=== PATIENT | male | born 1990 | race Caucasian/White ===

== ENCOUNTER 2021-08-14 14:10 | Emergency (ER) | payer BC, SELFPAY ==
[2021-08-14] VITALS (7 sets, daily range): BP systolic 129–166; BP diastolic 83–107; PULSE 87–124; RESP 18; TEMP 36.5; O2SAT 95–98; BMI 27.1
--- NOTE | 2021-08-14 16:25 | ED.ANXIETY ---
HPI - Anxiety General Time Seen by Provider: 16:25 Date Seen: 08/14/21 Chief Complaint: Anxiety Stated Complaint: ANXIETY Time Seen by Provider: 08/14/21 15:40 Source: patient Mode of arrival: ambulatory Limitations: no limitations History of Present Illness HPI narrative: This 31-year-old male comes in reporting symptoms of anxiety for the past several days. He states that he has a history of mild generalized anxiety that he has been able to manage without using any medicines. This is been the case for many years. He states that he has become more anxious with increased heart rate and blood pressure over the past several days. He states that he was at a constitution party this last weekend where he had excessive amounts of alcohol. He does not normally do this but states that he does take marijuana occasionally. He states that he has some difficulty getting to sleep. He denies having any depression or suicidality. He does not have any auditory or visual hallucinations. He does report a hoarse voice but denies having fever, cough, or nasal congestion. He thinks that his thin voice is related to anxiety. He does state that he feels that his mouth is dry and could use some fluids. Related Data Previous Rx's Medication Instructions Recorded escitalopram oxalate 10 mg tablet 10 mg PO DAILY #30 tab 08/14/21 (Lexapro) lorazepam 0.5 mg tablet (Ativan) 0.5 mg PO TID PRN #10 tab 08/14/21 ondansetron HCl 4 mg tablet 4 mg PO Q6H #20 tab 08/14/21 Allergies Allergy/AdvReac Type Severity Reaction Status Date / Time neomycin Allergy Mild Verified 08/14/21 14:37 bactrim Allergy Mild Uncoded 08/14/21 14:37 Review of Systems Narrative: Constitutional: No fevers, no weight gain or loss. Eyes: No discharge. No vision changes. HENT: No congestion, no sore throat, no ear pain. Hoarse voice. Cardiovascular: No chest pain, no palpitations. Respiratory: No shortness of breath, no wheezes, no cough. Gastrointestinal: No abdominal pain, no vomiting, no diarrhea. Genitourinary: No dysuria, no hematuria. Musculoskeletal: Normal range of motion. Skin: No rashes, no pruritis. Neurological: No dizziness, weakness, sensory change, speech change. Endo/Heme/Allergies: No bruising or bleeding. No polydipsia. Pysch: no suicidality. Anxiety and insomnia as stated above. All other systems reviewed and are negative. [facility] Social History Smoking Status: Current every day smoker What tobacco products do you use: cigarettes Do you use any of these nicotine containing products: None Second hand tobacco smoke exposure: Yes How often do you have a drink containing alcohol: monthly or less How often do you have six or more drinks on one occasion: Less than monthly AUDIT-C Alcohol total score: 2 Non-prescribed substance use: marijuana (any form) Exam Narrative: Exam Narrative: Constitutional: Well-developed, well-nourished, no acute distress. HEENT: Normocephalic, atraumatic. Neck: Normal range of motion. Nontender. Supple. Heart: Regular. No murmurs. Normal rate. Intact distal pulses. Lungs: Clear to auscultation. No chest discomfort. No wheezes, rhonchi, or rales. Abdomen: Normal bowel sounds. Nontender. No rebound tenderness. Genitalia: Deferred. Back: No midline tenderness. Normal range of motion. Extremities: Normal range of motion. No injury. Skin: Intact. No rash. Warm. No erythema or pallor. Neurologic: No altered sensation. No weakness. Alert and oriented. Psychiatric: No suicidality. No depression. Nursing notes and vitals signs are reviewed. Const: Vital Signs, click to edit/add: Vital Signs - 24 hr 08/14/21 14:38 08/14/21 16:12 08/14/21 16:30 Temperature 97.7 F Pulse Rate [Right Pulse Oximeter] 124 H 94 93 Respiratory Rate 18 Blood Pressure [Ri ght Upper Arm] 134/91 H 166/107 H 152/94 H Pulse Oximetry 98 97 95 08/14/21 17:05 08/14/21 17:30 Temperature Pulse Rate [Right Pulse Oximeter] 106 H Respiratory Rate Blood Pressure [Ri ght Upper Arm] 143/101 H 140/84 H Pulse Oximetry 97 Psych: Common normals: mental status grossly normal Attitude: calm and engaged Activity/motor behavior: appropriate eye contact Course Vital Signs Vital signs: Initial Vital Signs Temperature 97.7 F 08/14/21 14:38 Temperature Source Temporal Artery Scan 08/14/21 14:38 Pulse Rate 124 H 08/14/21 14:38 Respiratory Rate 18 08/14/21 14:38 Blood Pressure 134/91 H 08/14/21 14:38 Blood Pressure Mean 105 08/14/21 14:38 Blood Pressure Position Sitting 08/14/21 14:38 Pulse Oximetry 98 08/14/21 14:38 Oxygen Delivery Method 08/14/21 14:38 Vital Signs Temperature 97.7 F 08/14/21 14:38 Pulse Rate 124 H 08/14/21 14:38 Respiratory Rate 18 08/14/21 14:38 Blood Pressure 134/91 H 08/14/21 14:38 Pulse Oximetry 98 08/14/21 14:38 Temperature 97.7 F 08/14/21 14:38 Pulse Rate 106 H 08/14/21 17:30 Respiratory Rate 18 08/14/21 14:38 Blood Pressure 140/84 H 08/14/21 17:30 Pulse Oximetry 97 08/14/21 17:30 MDM - Anxiety MDM Narrative Medical decision making narrative: This patient comes in reporting symptoms of anxiety and also has laryngitis. An IV was established where the patient received a L of normal saline, 4 mg of Zofran, and 0.5 mg of Ativan. Later he received another dose of Ativan 0.5 mg. These brought sufficient relief to his symptoms. Lab results returned with reassuring findings. The patient has laryngitis is possibly due to a virus or perhaps some other inflammatory cause. He is not showing signs of infection. His primary concern is his symptoms of anxiety. I did recommend starting an anti anxiety medicine and he agreed to try a prescription for Lexapro. He also received 10 tablets of Ativan to give more immediate relief if needed. I advised him to follow up with the primary physician in 2-3 weeks for re-evaluation. Differential Diagnosis Differential diagnosis: Likely panic disorder and acute anxiety Lab Data Attestation: I reviewed the patient's lab results. Labs: Lab Results 08/14/21 08/14/21 Range/Units 16:50 16:50 WBC 11.83 H (4.50-11.00) K/uL RBC 5.54 (4.30-5.90) m/uL Hgb 15.9 (13.5-17.5) gm/dL Hct 45.9 (37.0-53.0) % MCV 83 (80-100) fL MCH 29 (26-34) pg MCHC 35 (32-36) gm/dL RDW Coeff of Hipolito 13.5 (11.5-15.5) % Plt Count 274 (140-440) K/uL Neut % (Auto) 82.3 H (42.0-72.0) % Lymph % (Auto) 10.7 L (20-44) % [place] % (Auto) 6.6 (0.0-11.0) % Eos % (Auto) 0.0 (0.0-7.0) % Baso % (Auto) 0.3 (0.0-3.0) % Neut # (Auto) 9.70 H (1.7-7.0) K/uL Lymph # (Auto) 1.30 (0.90-2.90) K/uL [place] # (Auto) 0.80 (0.00-0.90) K/UL Eos # (Auto) 0.00 (0.00-0.50) K/uL Baso # (Auto) 0.00 (0.00-0.30) K/uL Abs Immat Gran (auto) 0.01 (0.00-0.30) K/uL Sodium 135 (135-149) mmol/L Potassium 4.3 (3.6-5.1) mmol/L Chloride 96 (96-114) mmol/L Carbon Dioxide 18 L (20-32) mmol/L BUN 15 (5-24) mg/dL Creatinine 0.9 (0.5-1.5) mg/dL Estimated Creat Clear 131.73 Glucose 92 (60-115) mg/dL Calcium 9.7 (8.4-10.6) mg/dL Discharge Plan Discharge Clinical Impression: Acute anxiety Condition: Improved Instructions: Anxiety (ED) Activity Level: Activity as Tolerated Prescriptions: New lorazepam [Ativan] 0.5 mg tablet 0.5 mg PO TID PRNQty: 10 0RF ondansetron HCl 4 mg tablet 4 mg PO Q6H Qty: 20 0RF escitalopram oxalate [Lexapro] 10 mg tablet 10 mg PO DAILY Qty: 30 2RF Follow Up/Referrals: Sammy Bender MD [Primary Care Provider] - Stand Alone [facility] Info Inst[facility]
[2021-08-14] MEDS: 0.9 % SODIUM CHLORIDE 1000 ml 1,000 ML IV (16:56)
[2021-08-14] MEDS: LORazepam 2 MG/ML inj 0.5 MG IV ×2 (16:58→17:54)
[2021-08-14 17:00] LABS: Basophils Percent Auto 0.3 % (0.0-3.0); Hematocrit 45.9 % (37.0-53.0); Hemoglobin* 15.9 gm/dL (13.5-17.5); Immature Granulocytes Abs Auto 0.01 K/uL (0.00-0.30); Lymphocytes Percent Auto 10.7 % (20-44); Mean Corpuscular HGB Conc 35 gm/dL (32-36); Mean Corpuscular Hemoglobin 29 pg (26-34); Mean Corpuscular Volume 83 fL (80-100); Monocytes Percent Auto 6.6 % (0.0-11.0); Neutrophils Percent Auto 82.3 % (42.0-72.0); Platelet Count* 274 K/uL (140-440); RDW Coefficient of Variation % 13.5 % (11.5-15.5); Red Blood Count 5.54 m/uL (4.30-5.90); White Blood Count* 11.83 K/uL (4.50-11.00)
[2021-08-14 17:19] LABS: Chloride* 96 mmol/L (96-114); Potassium* 4.3 mmol/L (3.6-5.1); Sodium* 135 mmol/L (135-149)
[2021-08-14 17:22] LABS: Blood Urea Nitrogen* 15 mg/dL (5-24); Carbon Dioxide* 18 mmol/L (20-32); Creatinine* 0.9 mg/dL (0.5-1.5); Est. Creatinine Clearance* 131.73; Estimated Glomerular Filt Rate 117.83; Glucose* 92 mg/dL (60-115)
[2021-08-14 17:23] LABS: Calcium* 9.7 mg/dL (8.4-10.6)
[2021-08-14 17:28] LABS: Slide Review Reflex No
[2021-08-14] MEDS: ONDANSETRON 2 MG/ML inj 4 MG IVP (17:53)
== END 2021-08-14 19:06 ==
PROVIDERS: Emergency Provider Emergency Medicine Emergency Medical Services; PCP Family Medicine
DX: F41.9 Anxiety disorder, unspecified (principal); J04.0 Acute laryngitis
CPT/HCPCS: 36415; 80048; 85025; 96374; 96375; 96376; 99284; J2060; J2405; J7030

== ENCOUNTER 2022-04-12 19:02 | Emergency (ER) | payer BC, SELFPAY ==
[2022-04-12 19:07] VITALS: BP 158/103; PULSE 104; RESP 18; TEMP 36.8; O2SAT 97
--- NOTE | 2022-04-12 19:16 | ED_ITS ---
HPI - General Adult General Time Seen by Provider: 19:16 Date Seen: 04/12/22 Chief complaint: Headache/Migraine Stated complaint: bad headache Time Seen by Provider: 04/12/22 19:15 Source: patient and RN notes reviewed Mode of arrival: ambulatory Limitations: no limitations History of Present Illness HPI narrative: Patient is a 32-year-old male coming in accompanied with his significant other with complaint of severe headache. He has had it for 3 days. He has been trying ibuprofen without any relief. He does have some audible nasal congestion and when I question him on that, he states he is still quite congested. He had a recent cold but overall thought it was just a mild cold. He does continue with some nasal congestion. He has no visual changes with this no sore throat no significant rhinorrhea. He has had no fevers chills. No concern for any breathing issues. No nausea or vomiting. States his oral intake is good. He denies any neurologic changes, states arms and legs are working fine no visual changes. She describes the headache as a pressure on the front of his headache and the top of his head. He typically does not get headaches per report. Related Data Previous Rx's Medication Instructions Recorded escitalopram oxalate 10 mg tablet 10 mg PO DAILY #30 tabs 08/14/21 (Lexapro) lorazepam 0.5 mg tablet (Ativan) 0.5 mg PO TID PRN #10 tabs 08/14/21 ondansetron HCl 4 mg tablet 4 mg PO Q6H #20 tabs 08/14/21 amoxicillin 875 mg-potassium 1 tab PO BID #20 tabs 04/12/22 clavulanate 125 mg tablet Allergies Allergy/AdvReac Type Severity Reaction Status Date / Time neomycin Allergy Mild Verified 08/14/21 14:37 bactrim Allergy Mild Uncoded 08/14/21 14:37 Review of Systems Status of ROS: Reports: 10 or more systems reviewed and unremarkable except as noted in History and below PFSH PFS Social History Smoking Status: Current every day smoker What tobacco products do you use: cigarettes Do you use any of these nicotine containing products: None Second hand tobacco smoke exposure: Yes How often do you have a drink containing alcohol: monthly or less How often do you have six or more drinks on one occasion: Less than monthly AUDIT-C Alcohol total score: 2 Non-prescribed substance use: marijuana (any form) Non-prescribed substance use details: vapes marijuana Exam 2 Const: Vital Signs, click to edit/add: Vital Signs - 24 hr 04/12/22 19:07 04/12/22 19:56 04/12/22 20:56 Temperature 98.2 F 98 F Pulse Rate [Right Pulse Oximeter] 104 H 98 Respiratory Rate 18 18 Blood Pressure [Le ft Upper Arm] 158/103 H 149/99 H Pulse Oximetry 97 98 98 Oxygen Delivery Me thod Room Air Room Air Documenting provider has reviewed patient's vital signs: yes Common normals: no apparent distress, average body habitus, oriented x3, no limitations, healthy appearing and alert General appearance: cooperative, comfortable, well kempt, well developed and anxious Other: Breaks down into tears at end of interaction, reviewed with him that we will certainly try to help him feel better. HENMT: Common normals: normocephalic, head/scalp atraumatic, hearing grossly normal bilaterally, external ears normal, EAC's normal, TM's normal bilaterally, external nose normal, nasal mucous membranes and turbinates normal, moist oral mucous membranes, oropharynx normal, dentition normal and gingiva normal Head and scalp: normocephalic and atraumatic Nose: external nose normal and nasal mucous membranes and turbinates normal External ear: external ears normal External auditory canal: EAC's normal Tympanic membrane: TM's normal bilaterally Eye: Common normals: PERRL, EOMs intact bilaterally, conjunctivae normal and no scleral icterus Conjunctiva: conjunctiva(e) normal Pupil: PERRL Neck & C-Spine: Common normals: full ROM, no lymphadenopathy, supple, no meningeal signs, no JVD and thyroid normal Thyroid: thyroid normal Resp: Common normals: normal respiratory effort, no retractions, no use of accessory muscles and clear to auscultation bilaterally Auscultation: clear to auscultation bilaterally Cardio: Common normals: no JVD, regular rate, regular rhythm, S1 normal heart sound, S2 normal heart sound, no gallops, no clicks and no murmurs Rate: regular rate Rhythm: regular rhythm Heart sounds: S1 normal and S2 normal GI: Common normals: Normal to inspection, nondistended, normoactive bowel sounds present, soft to palpation, non-tender, no hepatosplenomegaly and no masses Palpation: soft and no hepatosplenomegaly Extremity: Common normals: normal to inspection, full ROM, no calf tenderness and no pedal edema Neuro: [place] Coma Scale: document GCS findings Aaron coma scale eye opening: Spontaneous (4) Aaron coma scale verbal response: Orientated (5) Aaron coma scale motor response: Obey commands (6) [place] coma scale total score: 15 Common normals: oriented x3, CN's II-XII intact bilaterally, moves all extremities, no focal motor deficits and no sensory deficits noted Sensorium/orientation: alert Meningeal signs: no meningeal signs Speech: speech normal Psych: Appearance: well kempt Course Course Hospital Course: Will establish an IV, give patient a L of normal saline 15 mg IV Toradol. He did start to seem quite anxious towards the end of the interaction come will give him 0.5 mg IV Ativan. We will proceed with a head CT, do think there could be some sinusitis and would see some of his sinuses on the head CT. Will do a full complement of labs including the triple viral swab. Will work on headache control. He does not seem to have any acute neurologic changes or any changes concerning for meningitis on his clinical exam. Await laboratory evaluation. Reevaluation(s) Reevaluation #1: Have reviewed patient's lab results, have brought a copy of his head CT in. There are some mucosal changes within the sinuses. Is not completely clear to me why the lactate is so elevated as he states he is drinking. His other inflammatory markers are normal, procalcitonin is normal. The viral triple swab is negative. He does laugh and joke with me when I am in there but states his headache is still pretty severe. Am going to initiate IV antibiotics for probable sinusitis which could be the causative etiology of his headache. Will give him some IV pain management tonight. He can start oral antibiotic medicines tomorrow. Will recheck a lactate after he has had a L of fluids. Time: 20:28 Reevaluation #2: Patient is feeling better after the morphine. He is currently getting antibiotics, his IV fluids are finishing. Did recheck a lactate a bit earlier as I just wanted to make sure and indeed is improving just after about 500 mL of fluids. The rest of his labs and vital signs do not have any concerning abnormalities. The lactate is isolated abnormality. Will encourage him to drink plenty of fluids at time of discharge. Once his antibiotics are complete, will have him discharged home. Time: 21:03 Vital Signs Vital signs: Initial Vital Signs Temperature 98.2 F 04/12/22 19:07 Temperature Source Temporal Artery Scan 04/12/22 19:07 Pulse Rate 104 H 04/12/22 19:07 Pulse Rhythm 04/12/22 19:07 Respiratory Rate 18 04/12/22 19:07 Blood Pressure 158/103 H 04/12/22 19:07 Blood Pressure Mean 121 04/12/22 19:07 Blood Pressure Position Semi-Fowlers 04/12/22 19:07 Pulse Oximetry 97 04/12/22 19:07 Oxygen Delivery Method 04/12/22 19:07 Vital Signs Temperature 98.2 F 04/12/22 19:07 Pulse Rate 104 H 04/12/22 19:07 Respiratory Rate 18 04/12/22 19:07 Blood Pressure 158/103 H 04/12/22 19:07 Pulse Oximetry 97 04/12/22 19:07 Oxygen Delivery Method 04/12/22 19:07 Temperature 98 F 04/12/22 19:56 Pulse Rate 98 04/12/22 19:56 Respiratory Rate 18 04/12/22 19:56 Blood Pressure 149/99 H 04/12/22 19:56 Pulse Oximetry 98 04/12/22 20:56 Oxygen Delivery Method 04/12/22 19:56 Medical Decision Making Lab Data Lab results reviewed: Yes I reviewed the patient's lab results Labs: Lab Results 04/12/22 04/12/22 04/12/22 Range/Units 19:20 19:20 19:20 WBC 11.04 H (4.50-11.00) K/uL RBC 5.78 (4.30-5.90) m/uL Hgb 16.3 (13.5-17.5) gm/dL Hct 47.6 (37.0-53.0) % MCV 82 (80-100) fL MCH 28 (26-34) pg MCHC 34 (32-36) gm/dL RDW Coeff of Hipolito 13.7 (11.5-15.5) % Plt Count 322 (140-440) K/uL Neut % (Auto) 71.6 (42.0-72.0) % Lymph % (Auto) 21.6 (20-44) % [place] % (Auto) 5.9 (0.0-11.0) % Eos % (Auto) 0.3 (0.0-7.0) % Baso % (Auto) 0.5 (0.0-3.0) % Neut # (Auto) 7.90 H (1.7-7.0) K/uL Lymph # (Auto) 2.40 (0.90-2.90) K/uL [place] # (Auto) 0.70 (0.00-0.90) K/UL Eos # (Auto) 0.00 (0.00-0.50) K/uL Baso # (Auto) 0.10 (0.00-0.30) K/uL ESR 4 (2-15) mm/hr Sodium 140 (135-149) mmol/L Potassium 3.8 (3.6-5.1) mmol/L Chloride 103 (96-114) mmol/L Carbon Dioxide 22 (20-32) mmol/L BUN 10 (5-24) mg/dL Creatinine 0.6 (0.5-1.5) mg/dL Estimated GFR 132 ml/min Glucose 93 (60-115) mg/dL Lactate (0.5-1.9) mmol/L Calcium 9.0 (8.4-10.6) mg/dL Total Bilirubin 1.0 (0.1-1.5) mg/dL AST 42 H (12-35) U/L ALT 26 (4-50) U/L Alkaline Phosphatase 94 (40-150) U/L C-Reactive Protein < 0.5 L (0.5-1.0) mg/dL Total Protein 8.0 (6.0-8.3) g/dL Albumin 4.7 (3.3-5.0) g/dL Procalcitonin (<0.50) ng/mL SARS-CoV-2 (PCR) (Negative) Influenza Type A (PCR) (Negative) Influenza Type B (PCR) (Negative) RSV (PCR) (Negative) 04/12/22 04/12/22 04/12/22 Range/Units 19:20 19:20 19:24 WBC (4.50-11.00) K/uL RBC (4.30-5.90) m/uL Hgb (13.5-17.5) gm/dL Hct (37.0-53.0) % MCV (80-100) fL MCH (26-34) pg MCHC (32-36) gm/dL RDW Coeff of [place]ol[place] (11.5-15.5) % Plt Count (140-440) K/uL Neut % (Auto) (42.0-72.0) % Lymph % (Auto) (20-44) % [place] % (Auto) (0.0-11.0) % Eos % (Auto) (0.0-7.0) % Baso % (Auto) (0.0-3.0) % Neut # (Auto) (1.7-7.0) K/uL Lymph # (Auto) (0.90-2.90) K/uL [place] # (Auto) (0.00-0.90) K/UL Eos # (Auto) (0.00-0.50) K/uL Baso # (Auto) (0.00-0.30) K/uL ESR (2-15) mm/hr Sodium (135-149) mmol/L Potassium (3.6-5.1) mmol/L Chloride (96-114) mmol/L Carbon Dioxide (20-32) mmol/L BUN (5-24) mg/dL Creatinine (0.5-1.5) mg/dL Estimated GFR ml/min Glucose (60-115) mg/dL Lactate 4.5 H* (0.5-1.9) mmol/L Calcium (8.4-10.6) mg/dL Total Bilirubin (0.1-1.5) mg/dL AST (12-35) U/L ALT (4-50) U/L Alkaline Phosphatase (40-150) U/L C-Reactive Protein (0.5-1.0) mg/dL Total Protein (6.0-8.3) g/dL Albumin (3.3-5.0) g/dL Procalcitonin 0.04 (<0.50) ng/mL SARS-CoV-2 (PCR) Negative SARS-CoV-2 (Negative) Influenza Type A (PCR) Negative PCR FLU A (Negative) Influenza Type B (PCR) Negative PCR FLU B (Negative) RSV (PCR) Negative PCR RSV (Negative) 04/12/22 Range/Units 20:45 WBC (4.50-11.00) K/uL RBC (4.30-5.90) m/uL Hgb (13.5-17.5) gm/dL Hct (37.0-53.0) % MCV (80-100) fL MCH (26-34) pg MCHC (32-36) gm/dL RDW Coeff of [place] (11.5-15.5) % Plt Count (140-440) K/uL Neut % (Auto) (42.0-72.0) % Lymph % (Auto) (20-44) % [place] % (Auto) (0.0-11.0) % Eos % (Auto) (0.0-7.0) % Baso % (Auto) (0.0-3.0) % Neut # (Auto) (1.7-7.0) K/uL Lymph # (Auto) (0.90-2.90) K/uL [place] # (Auto) (0.00-0.90) K/UL Eos # (Auto) (0.00-0.50) K/uL Baso # (Auto) (0.00-0.30) K/uL ESR (2-15) mm/hr Sodium (135-149) mmol/L Potassium (3.6-5.1) mmol/L Chloride (96-114) mmol/L Carbon Dioxide (20-32) mmol/L BUN (5-24) mg/dL Creatinine (0.5-1.5) mg/dL Estimated GFR ml/min Glucose (60-115) mg/dL Lactate 3.9 H (0.5-1.9) mmol/L Calcium (8.4-10.6) mg/dL Total Bilirubin (0.1-1.5) mg/dL AST (12-35) U/L ALT (4-50) U/L Alkaline Phosphatase (40-150) U/L C-Reactive Protein (0.5-1.0) mg/dL Total Protein (6.0-8.3) g/dL Albumin (3.3-5.0) g/dL Procalcitonin (<0.50) ng/mL SARS-CoV-2 (PCR) (Negative) Influenza Type A (PCR) (Negative) Influenza Type B (PCR) (Negative) RSV (PCR) (Negative) Imaging Data CT scan - head: Attestation: I have reviewed the pertinent imaging results. Radiologist's impression: Patient: BERYL HERNANDEZ Facility:?[facility] Patient ID:?[id number] Site Patient ID:?[id number]. Site :?[id number] Study:?CT Head W/O-04/12/2022 7:47:07 PM Ordering Physician:Chau Raymundo Final Report: HISTORY: Severe headache. TECHNIQUE: Noncontrast head CT. COMPARISON: 02/02/2018. FINDINGS: A small area of extracranial soft tissue swelling in the right parietal region is unchanged from 2018. There is no underlying acute skull fracture. No acute loss of contreras-white differentiation. No acute intracranial hemorrhage or acute ischemic infarct. No hydrocephalus. No midline shift. The mastoid air cells are clear. Mucosal thickening involving maxillary sinuses, ethmoid air cells and right sphenoid sinus. IMPRESSION: 1. No acute intracranial disease. 2. Mucosal thickening involving the maxillary sinuses, right sphenoid sinus and ethmoid air cells which is likely inflammatory. Dictated by Leandro George MD @ 04/12/2022 8:18:01 PM Please note that all CT scans at this facility use dose modulation, iterative reconstruction, and/or weight-based dosing when appropriate to reduce radiation dose to as low as reasonably achievable. Dictated by: Leandro George MD @ 04/12/2022 20:18:05 (Electronic Signature) Critical Care Time Critical Care Time Critical Care Time: No Discharge Plan Discharge Clinical Impression: Headache, Sinusitis Patient Disposition: Home, Self-Care Condition: Stable Instructions: Sinusitis (ED), Acute Headache (ED) Additional Instructions: Start oral antibiotics in the morning and take as prescribed. Consider getting Flonase or other similar OTC nasal steroid and use for the next 1-2 weeks, follow package directions for use. Take Tylenol 1000mg 3x/day baseline for pain, supplement with ibuprofen per bottle directions as needed. Recommend scheduling clinic follow up in the next 2-3 days for recheck to ensure that you have follow up to discuss any ongoing issues, review any ongoing headache issues. Drink plenty of fluids, it is important to stay hydrated with headaches. Will send you with 4 tablets of oxycodone 5 mg, can use 1 every 6 hours as needed for severe pain. Do not operate machinery or drive while on this. Activity Level: Activity as Tolerated Discharge Diet: Regular Prescriptions: New amoxicillin-pot clavulanate 875-125 mg tablet 1 tab PO BID Qty: 20 0RF No Action lorazepam [Ativan] 0.5 mg tablet 0.5 mg PO TID PRNQty: 10 0RF ondansetron HCl 4 mg tablet 4 mg PO Q6H Qty: 20 0RF escitalopram oxalate [Lexapro] 10 mg tablet 10 mg PO DAILY Qty: 30 2RF Follow Up/Referrals: Sammy Bender MD [Primary Care Provider] - Stand Alone Forms: [facility] Info Instructions
--- NOTE | 2022-04-12 19:24 | CRLHL7_ITS ---
For Patients: As a result of the Cures Act, medical imaging exams and procedure reports are released immediately into your electronic medical record. You may view this report before your referring provider. If you have questions, please contact your health care provider. HISTORY: Severe headache. TECHNIQUE: Noncontrast head CT. COMPARISON: 02/02/2018. FINDINGS: A small area of extracranial soft tissue swelling in the right parietal region is unchanged from 2018. There is no underlying acute skull fracture. No acute loss of contreras-white differentiation. No acute intracranial hemorrhage or acute ischemic infarct. No hydrocephalus. No midline shift. The mastoid air cells are clear. Mucosal thickening involving maxillary sinuses, ethmoid air cells and right sphenoid sinus. IMPRESSION: 1. No acute intracranial disease. 2. Mucosal thickening involving the maxillary sinuses, right sphenoid sinus and ethmoid air cells which is likely inflammatory. Dictated by Leandro George MD @ 04/12/2022 8:18:01 PM Please note that all CT scans at this facility use dose modulation, iterative reconstruction, and/or weight-based dosing when appropriate to reduce radiation dose to as low as reasonably achievable. Dictated by: Leandro George MD @ 04/12/2022 20:18:05 (Electronically Signed)
[2022-04-12 19:45] LABS: Lactate* 4.5 mmol/L (0.5-1.9)
[2022-04-12 19:45] LABS: Basophils Percent Auto 0.5 % (0.0-3.0); Eosinophils Percent Auto 0.3 % (0.0-7.0); Hematocrit 47.6 % (37.0-53.0); Hemoglobin* 16.3 gm/dL (13.5-17.5); Immature Granulocytes Pct Auto 0.1 %; Lymphocytes Percent Auto 21.6 % (20-44); Mean Corpuscular HGB Conc 34 gm/dL (32-36); Mean Corpuscular Hemoglobin 28 pg (26-34); Mean Corpuscular Volume 82 fL (80-100); Monocytes Percent Auto 5.9 % (0.0-11.0); Neutrophils Percent Auto 71.6 % (42.0-72.0); Platelet Count* 322 K/uL (140-440); RDW Coefficient of Variation % 13.7 % (11.5-15.5); Red Blood Count 5.78 m/uL (4.30-5.90); White Blood Count* 11.04 K/uL (4.50-11.00)
[2022-04-12] MEDS: LORazepam 2 MG/ML inj 0.5 MG IVP (19:45)
[2022-04-12] MEDS: 0.9 % SODIUM CHLORIDE 1000 ml 1,000 ML IV (19:46)
[2022-04-12] MEDS: KETOROLAC 15 MG/ML inj IVP (19:46)
[2022-04-12 19:48] LABS: Slide Review Reflex No
[2022-04-12 19:56] VITALS: BP 149/99; PULSE 98; RESP 18; TEMP 36.6; O2SAT 98
[2022-04-12 20:00] LABS: Albumin* 4.7 g/dL (3.3-5.0); Chloride* 103 mmol/L (96-114)
[2022-04-12 20:01] LABS: Potassium* 3.8 mmol/L (3.6-5.1); Sodium* 140 mmol/L (135-149)
[2022-04-12 20:03] LABS: Creatinine* 0.6 mg/dL (0.5-1.5); Estimated Glomerular Filt Rate 132 ml/min
[2022-04-12 20:04] LABS: Alanine Aminotransferase* 26 U/L (4-50); Alkaline Phosphatase* 94 U/L (40-150); Aspartate Amino Transferase* 42 U/L (12-35); Blood Urea Nitrogen* 10 mg/dL (5-24); Carbon Dioxide* 22 mmol/L (20-32); Glucose* 93 mg/dL (60-115)
[2022-04-12 20:07] LABS: C Reactive Protein* < 0.5 mg/dL (0.5-1.0)
[2022-04-12 20:20] LABS: Procalcitonin* 0.04 ng/mL (<0.50)
[2022-04-12 20:25] LABS: PCR FLU A Negative PCR FLU A (Negative); PCR FLU B Negative PCR FLU B (Negative); PCR RSV Negative PCR RSV (Negative)
[2022-04-12 20:26] LABS: SARS PCR* Negative SARS-CoV-2 (Negative)
[2022-04-12 20:27] LABS: Erythrocyte SedimentationRate* 4 mm/hr (2-15)
[2022-04-12] MEDS: AMPICILLIN/SULBACTAM 3 GM in 0.9 % SODIUM CHLORIDE Mini-bag 100 ML IVPB (20:39)
[2022-04-12] MEDS: MORPHINE 4 MG/ML INJ IVP (20:39)
[2022-04-12 20:48] LABS: Lactate* 3.9 mmol/L (0.5-1.9)
[2022-04-12 20:56] VITALS: O2SAT 98
[2022-04-12 21:26] VITALS: BP 123/88; PULSE 89; RESP 20
== END 2022-04-12 21:27 | disposition home or self-care (01) ==
PROVIDERS: Emergency Provider Family Medicine; PCP Family Medicine
DX: R51.9 Headache, unspecified (principal); J32.9 Chronic sinusitis, unspecified
CPT/HCPCS: 36415; 70450; 80053; 83605; 84145; 85025; 85651; 86140; 87502; 87634; 87635; 94761; 96374; 96375; 99284; J0295; J1885; J2060; J2270; J7030

== ENCOUNTER 2022-04-13 22:06 | Emergency (ER) | payer BC, SELFPAY ==
[2022-04-13 22:16] VITALS: BP 154/105; PULSE 105; RESP 18; TEMP 36.7; O2SAT 99; BMI 26.4
--- NOTE | 2022-04-13 22:29 | ED_ITS ---
HPI - Headache General Time Seen by Provider: 22:30 Date Seen: 04/13/22 Chief Complaint: Headache/Migraine Stated Complaint: Headache - seen yesterday Time Seen by Provider: 04/13/22 22:20 Source: patient Mode of arrival: ambulatory Limitations: no limitations History of Present Illness HPI Narrative: 32-year-old male who presents today with headache. Prior records reviewed show patient was seen yesterday with headache, labs at that time were performed along with head CT with no acute intracranial findings. Patient is given Toradol, fluids, and Ativan in the emergency department and discharged with Augmentin for possible sinusitis. Patient returns today with continued headache. Said he felt little better earlier but the headache returned tonight. Headache is bitemporal and on the top of the head. Nausea without vomiting. Admits to drinking alcohol to try to help this headache today, also has been taking ibuprofen. Pain is not worse lying down, no fever. Related Data Previous Rx's Medication Instructions Recorded escitalopram oxalate 10 mg tablet 10 mg PO DAILY #30 tabs 08/14/21 (Lexapro) lorazepam 0.5 mg tablet (Ativan) 0.5 mg PO TID PRN #10 tabs 08/14/21 ondansetron HCl 4 mg tablet 4 mg PO Q6H #20 tabs 08/14/21 amoxicillin 875 mg-potassium 1 tab PO BID #20 tabs 04/12/22 clavulanate 125 mg tablet Allergies Allergy/AdvReac Type Severity Reaction Status Date / Time neomycin Allergy Mild Hives Verified 04/13/22 22:22 sulfamethoxazole Allergy Mild Hives Verified 04/13/22 22:22 [From Bactrim] trimethoprim [From Bactrim] Allergy Mild Hives Verified 04/13/22 22:22 Review of Systems Status of ROS: Reports: 10 or more systems reviewed and unremarkable except as noted in History and below [facility] Social History Smoking Status: Current every day smoker What tobacco products do you use: cigarettes Do you use any of these nicotine containing products: None Second hand tobacco smoke exposure: Yes How often do you have a drink containing alcohol: monthly or less How often do you have six or more drinks on one occasion: Less than monthly AUDIT-C Alcohol total score: 2 Non-prescribed substance use: marijuana (any form) Non-prescribed substance use details: vapes marijuana Exam Narrative: Exam Narrative: General: Well-developed and well-nourished, no acute distress Head: Atraumatic and normocephalic Eyes: Pupils are equal reactive, extraocular motions intact, conjunctiva clear ENT: External nose and ears are normal, posterior pharynx without erythema or exudate Neck: No midline cervical tenderness, full spontaneous range of motion the neck, trachea midline, no adenopathy Heart: Tachycardic but regular, no murmurs Lungs: Clear to auscultation bilaterally without wheezes or crackles Abdomen: Soft, nontender, nondistended with active bowel sounds Musculoskeletal: No tenderness, deformity, or edema Neurologic: Awake, alert, and oriented x3, no gross focal neurologic deficits, cranial nerves intact as tested Psych: Mood and affect are appropriate Skin: No rashes Const: Vital Signs, click to edit/add: Vital Signs - 24 hr 04/13/22 22:16 Temperature 98.0 F Pulse Rate [Right Pulse Oximeter] 105 H Respiratory Rate 18 Blood Pressure [Ri ght Upper Arm] 154/105 H Pulse Oximetry 99 Oxygen Delivery Me thod Room Air Course Course Hospital Course: Patient seen examined, prior records reviewed. Patient presents with headache, bitemporal in on the top of the head. Patient was seen with same yesterday, had extensive workup including CT scan. Discharged with Augmentin oxycodone. No focal neurologic findings on exam, no history of head trauma, no fever nuchal rigidity, no red flag symptoms. Care impacted by indicating use and alcohol abuse. Fluids, Toradol, Benadryl, Compazine, Decadron ordered today. Given extensive evaluation yesterday, further imaging and labs not indicated today and discussed with patient goal of symptom management. Reevaluation(s) Reevaluation #1: Additional Zofran ordered. Patient had small emesis with blood streaking, labs ordered. Time: 00:01 Reevaluation #2: Labs are reassuring including normal basic panel, normal CBC normal hemoglobin. Patient is stable for discharge. Will be discharged with medication at with nausea vomiting. Time: 00:34 Vital Signs Vital signs: Initial Vital Signs Temperature 98.0 F 04/13/22 22:16 Temperature Source Temporal Artery Scan 04/13/22 22:16 Pulse Rate 105 H 04/13/22 22:16 Respiratory Rate 18 04/13/22 22:16 Blood Pressure 154/105 H 04/13/22 22:16 Blood Pressure Mean 121 04/13/22 22:16 Blood Pressure Position Sitting 04/13/22 22:16 Pulse Oximetry 99 04/13/22 22:16 Oxygen Delivery Method 04/13/22 22:16 Vital Signs Temperature 98.0 F 04/13/22 22:16 Pulse Rate 105 H 04/13/22 22:16 Respiratory Rate 18 04/13/22 22:16 Blood Pressure 154/105 H 04/13/22 22:16 Pulse Oximetry 99 04/13/22 22:16 Oxygen Delivery Method 04/13/22 22:16 Temperature 98.0 F 04/13/22 22:16 Pulse Rate 105 H 04/13/22 22:16 Respiratory Rate 18 04/13/22 22:16 Blood Pressure 154/105 H 04/13/22 22:16 Pulse Oximetry 99 04/13/22 22:16 Oxygen Delivery Method 04/13/22 22:16 MDM - Headache Lab Data Labs: Lab Results 04/13/22 04/13/22 Range/Units 23:34 23:34 WBC 7.72 (4.50-11.00) K/uL RBC 5.52 (4.30-5.90) m/uL Hgb 15.7 (13.5-17.5) gm/dL Hct 45.3 (37.0-53.0) % MCV 82 (80-100) fL MCH 28 (26-34) pg MCHC 35 (32-36) gm/dL RDW Coeff of [place] 13.8 (11.5-15.5) % Plt Count 285 (140-440) K/uL Neut % (Auto) 56.2 (42.0-72.0) % Lymph % (Auto) 31.9 (20-44) % [place] % (Auto) 9.3 (0.0-11.0) % Eos % (Auto) 1.2 (0.0-7.0) % Baso % (Auto) 0.6 (0.0-3.0) % Neut # (Auto) 4.34 (1.7-7.0) K/uL Lymph # (Auto) 2.46 (0.90-2.90) K/uL [place] # (Auto) 0.70 (0.00-0.90) K/UL Eos # (Auto) 0.09 (0.00-0.50) K/uL Baso # (Auto) 0.05 (0.00-0.30) K/uL Sodium 142 (135-149) mmol/L Potassium 4.1 (3.6-5.1) mmol/L Chloride 107 (96-114) mmol/L Carbon Dioxide 25 (20-32) mmol/L BUN 6 (5-24) mg/dL Creatinine 0.6 (0.5-1.5) mg/dL Estimated Creat Clear 201.60 Estimated GFR 132 ml/min Glucose 109 (60-115) mg/dL Calcium 8.3 L (8.4-10.6) mg/dL Discharge Plan Discharge Clinical Impression: Alcohol intoxication, Headache, Gastritis Patient Disposition: Home w/ Parent or Adult Condition: Stable Instructions: Alcohol Intoxication (ED), Acute Headache (DC) Additional Instructions: Take Tylenol as needed for headache. Do not take ibuprofen and drink alcohol at the same time. Avoid smoking, alcohol, and carbonated beverages along with capping to help with vomiting and gastritis. Activity Level: No Restrictions Discharge Diet: Regular Prescriptions: No Action lorazepam [Ativan] 0.5 mg tablet 0.5 mg PO TID PRNQty: 10 0RF ondansetron HCl 4 mg tablet 4 mg PO Q6H Qty: 20 0RF escitalopram oxalate [Lexapro] 10 mg tablet 10 mg PO DAILY Qty: 30 2RF amoxicillin-pot clavulanate 875-125 mg tablet 1 tab PO BID Qty: 20 0RF Follow Up/Referrals: Sammy Bender MD [Primary Care Provider] - Stand Alone Forms: unrival Info Instructions
[2022-04-13] MEDS: 0.9 % SODIUM CHLORIDE 1000 ml 1,000 ML IV (22:47)
[2022-04-13] MEDS: dexAMETHasone 10 MG/ML inj IVP (22:48)
[2022-04-13] MEDS: diphenhydrAMINE 50 MG/ML inj 25 MG IVP (22:49)
[2022-04-13] MEDS: KETOROLAC 15 MG/ML inj IVP (22:49)
[2022-04-13] MEDS: PROCHLORPERAZINE 5 MG/ML VIAL IVP (22:50)
[2022-04-13] MEDS: PANTOPRAZOLE SODIUM 40 MG INJ IVP (23:35)
[2022-04-13 23:39] LABS: Basophils Absolute Auto 0.05 K/uL (0.00-0.30); Basophils Percent Auto 0.6 % (0.0-3.0); Eosinophils Absolute Auto 0.09 K/uL (0.00-0.50); Eosinophils Percent Auto 1.2 % (0.0-7.0); Hematocrit 45.3 % (37.0-53.0); Hemoglobin* 15.7 gm/dL (13.5-17.5); Immature Granulocytes Abs Auto 0.06 K/uL (0.00-0.30); Immature Granulocytes Pct Auto 0.8 %; Lymphocytes Absolute Auto 2.46 K/uL (0.90-2.90); Lymphocytes Percent Auto 31.9 % (20-44); Mean Corpuscular HGB Conc 35 gm/dL (32-36); Mean Corpuscular Hemoglobin 28 pg (26-34); Mean Corpuscular Volume 82 fL (80-100); Monocytes Percent Auto 9.3 % (0.0-11.0); Neutrophils Absolute Auto 4.34 K/uL (1.7-7.0); Neutrophils Percent Auto 56.2 % (42.0-72.0); Platelet Count* 285 K/uL (140-440); RDW Coefficient of Variation % 13.8 % (11.5-15.5); Red Blood Count 5.52 m/uL (4.30-5.90); White Blood Count* 7.72 K/uL (4.50-11.00)
[2022-04-13 23:42] LABS: Slide Review Reflex No
[2022-04-13 23:51] LABS: Chloride* 107 mmol/L (96-114); Potassium* 4.1 mmol/L (3.6-5.1); Sodium* 142 mmol/L (135-149)
[2022-04-13 23:54] LABS: Blood Urea Nitrogen* 6 mg/dL (5-24); Carbon Dioxide* 25 mmol/L (20-32); Creatinine* 0.6 mg/dL (0.5-1.5); Estimated Glomerular Filt Rate 132 ml/min
[2022-04-13 23:55] LABS: Calcium* 8.3 mg/dL (8.4-10.6); Glucose* 109 mg/dL (60-115)
[2022-04-14] MEDS: ONDANSETRON 2 MG/ML inj 4 MG IVP (00:07)
== END 2022-04-14 00:57 | disposition home or self-care (01) ==
PROVIDERS: Emergency Provider Family Medicine; PCP Family Medicine
DX: F10.129 Alcohol abuse with intoxication, unspecified (principal); R51.9 Headache, unspecified; K29.70 Gastritis, unspecified, without bleeding
CPT/HCPCS: 36415; 80048; 85025; 96374; 96375; 99284; C9113; J0780; J1100; J1200; J1885; J2405; J7030